=== PATIENT | female | born 1970 | race Caucasian/White ===

== ENCOUNTER 2017-09-09 13:26 | Outpatient (CLI) | payer BC ==
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
== END 2017-09-09 13:28 ==
LOC: RAD 13:26
PROVIDERS: ATTEND Physician Assistant
DX: M79.674 Pain in right toe(s) (principal)
CPT/HCPCS: 73660

== ENCOUNTER 2017-09-28 09:47 | Outpatient (CLI) | payer BC ==
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
== END 2017-09-28 09:50 ==
LOC: RAD 09:47
PROVIDERS: ATTEND Physician Assistant
DX: S92.911A Unspecified fracture of right toe(s), initial encounter for closed fracture (principal); X58.XXXA Exposure to other specified factors, initial encounter; Y93.9 Activity, unspecified; Y92.9 Unspecified place or not applicable; Y99.9 Unspecified external cause status
CPT/HCPCS: 73660

== ENCOUNTER 2018-12-02 14:58 | Outpatient (CLI) | payer BC ==
[2018-12-02 15:23] LABS: APPEARANCE,URINE CLEAR (CLEAR); COLOR,URINE YELLOW (YELLOW)
[2018-12-02 15:24] LABS: OCCULT BLOOD,URINE TRACE-LYSED (NEGATIVE); UROBILINOGEN URINE 0.2 Eu (0.2-1.0)
== END 2018-12-02 15:00 ==
LOC: LAB 14:58
PROVIDERS: ATTEND Obstetrics & Gynecology
DX: R30.0 Dysuria (principal); Z91.89 Other specified personal risk factors, not elsewhere classified
CPT/HCPCS: 81002; 87086; 87186